=== PATIENT | female | born 1980 | race African-American/Black ===

== ENCOUNTER 2022-07-01 15:00 | Emergency (ER) | payer BC ==
[2022-07-01] MEDS ORDERED: Indomethacin 25 MG Cap PO ONE (16:37)
== END 2022-07-01 17:22 | disposition home or self-care (01) ==
LOC: MW.ED 15:00
DX: M10.9 Gout, unspecified (principal); Z91.013 Allergy to seafood; Z79.899 Other long term (current) drug therapy
CPT/HCPCS: 73630; 99283; A9270